=== PATIENT | male | born 1960 | race Caucasian/White ===

== ENCOUNTER 2020-06-08 06:47 | Day surgery (SDC) | payer OTHER ==
[~2020-06-08] VITALS: Ht 185.4 cm; Wt 113.4 kg
[2020-06-08] MEDS ORDERED: BAYER CHEWABLE81 MG PO (07:33)
[2020-06-08] MEDS ORDERED: NEURONTIN 300300 MG PO (07:34)
[2020-06-08] MEDS ORDERED: CELEXA20 MG PO (07:34)
[2020-06-08] MEDS ORDERED: GLUCOPHAGE500 MG PO (07:34)
[2020-06-08] MEDS ORDERED: NOVOLIN 70/30 110 ML SC (07:35)
[2020-06-08] MEDS ORDERED: ZOCOR10 MG PO (07:36)
[2020-06-08 07:50] LABS: BASOPHILS 0.7 % (0-2); EOSINOPHILS 3.8 % (0-7); HEMATOCRIT 37.6 % (42.0-54.0); HEMOGLOBIN 12.8 g/dL (13.5-17.5); IMMATURE GRANULOCYTES 0.2 % (0-5); LYMPHOCYTE ABS# 1.23 10x3/uL (1.32-3.57); LYMPHOCYTES 27.3 % (15-50); MCH 29.8 pg (26.0-34.0); MCV 87.6 fL (80.0-100.0); MONOCYTES 13.6 % (2-11); NEUTROPHIL ABS# 2.45 10x3/uL (1.78-5.38); NEUTROPHILS 54.4 % (40-80); PLATELET COUNT 114 10x3/uL (130-400); RBC 4.29 10x6/uL (4.20-6.10); RDW 14.8 % (11.5-14.5); WBC 4.5 10x3/uL (4.8-10.8)
[2020-06-08 08:11] LABS: CALC OSMOLALITY 282 mosm/kg (275-300); CALCIUM 8.9 mg/dL (8.5-10.1); CARBON DIOXIDE 27.2 mmol/L (21.0-32.0); CHLORIDE - SERUM 105 mmol/L (98-107); CREATININE - SERUM 0.7 mg/dL (0.6-1.3); GLUCOSE 220 mg/dL (74-106); POTASSIUM - SERUM 3.8 mmol/L (3.5-5.1); SODIUM 137 mmol/L (136-145); UREA NITROGEN 17 mg/dL (7-18); eGFR NON AFRICAN AMERICAN > 90 mL/min (90-120)
[2020-06-08 08:13] VITALS: BP 157/72; Ht 185.4 cm; Wt 113.4 kg
--- NOTE | 2020-06-12 21:32 | OP ---
PATIENT NAME: LINDA CELAYA MEDICAL RECORD: [id number] :58 LOCATION:[facility] ADMISSION DATE: SURGEON: MARK REICH MD DATE OF OPERATION: 06/08/2020 PREOPERATIVE DIAGNOSIS: Osteomyelitis, left second toe. POSTOPERATIVE DIAGNOSIS: Osteomyelitis, left second toe. PROCEDURE PERFORMED: Left second toe amputation. INDICATIONS FOR THE PROCEDURE: Mr. Celaya is a 59-year-old male with history of diabetes and ulcer to the tip of the left second toe. This has been going on now for several months and he has developed osteomyelitis of the distal phalanx of the second toe with a chronic draining wound. I talked with him about this condition and the need for amputation. He has also had the great toe amputated in the past for similar problems. Risks, benefits and alternatives of surgery were discussed with the patient and consent was obtained. DESCRIPTION OF PROCEDURE: The patient was met in the holding area where his identity and confirmation of the procedure was performed. Left lower extremity was marked. He was taken to the operating room where he was placed supine on the operating table. Anesthesia was administered. A tourniquet was applied to the left leg. The left leg was prepped and draped in a sterile fashion. The patient received preoperative antibiotics and timeout was performed before initiating the case. On the initiation of the case, the leg was exsanguinated and tourniquet was raised. Total tourniquet time was 11 minutes. We began the case with our incision making a fishmouth type incision around the base of the second toe. We then were able to skeletonize the proximal phalanx and excised at the level of the MTP joint. The arteries, both medial and lateral were identified and cauterized. The joint was cleared of any tissue and debris and the flexor tendons were resected proximally. The wound was then irrigated thoroughly with saline. There did not appear to be any signs of deep infection. The deep tissues over the metatarsal head were then closed with 3-0 PDS suture. The tourniquet was let down and hemostasis was obtained. We then closed the subcutaneous tissue with PDS and the skin was closed with a 4-0 nylon suture. A 0.25% Marcaine was then injected into the tissues around our amputation site. Sterile dressing was then placed. The patient was placed into a postop shoe, turned back over to anesthesia where he was awakened, extubated, and taken to the recovery room in stable condition. POSTOPERATIVE PLAN: The patient is going to return to his facility, but needs to be in the medical unit/infirmary until followup. He needs to limit any physical strenuous activity or prolonged ambulation. He can be heel weightbearing on that leg in the postop shoe. We will see him back in clinic in 2 weeks. COMPLICATIONS: None. ESTIMATED BLOOD LOSS: 10 mL. TRANSINT:[id number] Voice Confirmation ID: [id number] DOCUMENT ID: [id number] OPERATIVE REPORT [id number] LINDA CELAYA BRENT M MD at 2132 CC: [id number] DICTATION DATE: 06/08/20 1126 [employer] OPERATOR: 06/08/20 1149 [facility] 06/08/20 [facility] [address] [place] [address]
== END 2020-06-08 12:26 ==
LOC: D.OPS 06:47
PROVIDERS: Anesthesiology; ATTEND Orthopaedic Surgery
DX: M86.172 Other acute osteomyelitis, left ankle and foot (principal); M79.675 Pain in left toe(s); E11.621 Type 2 diabetes mellitus with foot ulcer

== ENCOUNTER → 2020-09-18 08:47 | Outpatient (CLI) | payer OTHER ==
[2020-06-08 08:13] VITALS: BMI 33.0
[~2020-09-18 08:47] MED LIST: BAYER CHEWABLE81 MG PO; CELEXA20 MG PO; GLUCOPHAGE500 MG PO; NEURONTIN 300300 MG PO; NOVOLIN 70/30 110 ML SC; ZOCOR10 MG PO
== END | disposition home or self-care (01) ==
LOC: D.US 08:47
PROVIDERS: ATTEND Internal Medicine
DX: I87.2 Venous insufficiency (chronic) (peripheral) (principal); I50.9 Heart failure, unspecified; R60.0 Localized edema; E11.9 Type 2 diabetes mellitus without complications

== ENCOUNTER → 2020-09-28 08:06 | Outpatient (CLI) | payer OTHER ==
[2020-06-08 08:13] VITALS: BMI 33.0
== END | disposition home or self-care (01) ==
LOC: D.US 08:06
PROVIDERS: ATTEND Internal Medicine
DX: I87.2 Venous insufficiency (chronic) (peripheral) (principal)